=== PATIENT | female | born 1950 | race Caucasian/White ===

== ENCOUNTER 2022-03-14 08:30 | Emergency (ER) | payer MEDICARE ==
[~2022-03-14] VITALS: Ht 165.1 cm; Wt 79.4 kg
--- NOTE | 2022-03-14 08:30 | NUR ---
pt to bed 2. 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 alert oriented x4 c/o of chest pain 8/10 radiating to the jaw started this morning around 0730 accompined with nausea no vomiting. no sob. connected pt to cardica monitor bp elevated at 178/112 other vs stable. ekg being done at bed side. skin intact. nka. hx of HTN, GERD, ANXIETY, DEPRESSION. bed at lowest position saftey checks completed.
--- NOTE | 2022-03-14 08:30 | NUR ---
ER at bedside examining patient.
--- NOTE | 2022-03-14 08:32 | NUR ---
EKG performed at by Dr. Miles. Physician given copy of EKG for review.
[2022-03-14 08:34] VITALS: BP_SYST 179
--- NOTE | 2022-03-14 08:40 | NUR ---
Chest X-Ray being done at bedside.
--- NOTE | 2022-03-14 08:44 | NUR ---
biodiesel production technician at bedside drawing blood.
[2022-03-14] MEDS ORDERED: NITROGLYCERIN 0.4 MG TAB.SUBL SL ONE ×3 (08:45→11:15)
--- NOTE | 2022-03-14 09:07 | NUR ---
reassessed pain pt stating 8/[address] Miles made aware
[2022-03-14 09:12] LABS: BASOPHILS % (AUTO) 0.4 % (0.0-2.0); EOSINOPHILS # (AUTO) 0.1 K/uL (0.0-0.4); EOSINOPHILS % (AUTO) 2.1 % (0.0-4.0); HEMATOCRIT 44.1 % (36-48); HEMOGLOBIN 14.7 g/dL (12.0-16.0); LYMPHOCYTES # (AUTO) 1.6 K/uL (1.0-5.5); LYMPHOCYTES % (AUTO) 31.8 % (20.5-51.5); MEAN CORPUSCULAR HEMOGLOBIN 28 pg (27-31); MEAN CORPUSCULAR HGB CONC 33 % (32-36); MEAN CORPUSCULAR VOLUME 83 fL (79.0-98.0); MONOCYTES # (AUTO) 0.4 K/uL (0.0-1.0); MONOCYTES % (AUTO) 8.7 % (1.7-9.3); NEUTROPHILS # (AUTO) 2.9 K/uL (1.8-7.7); PLATELET COUNT (AUTO) 235 K/uL (130-430); RED BLOOD CELL COUNT(AUTO) 5.33 MIL/uL (4.2-6.2); RED CELL DISTRIBUTION WIDTH 14.2 % (9.0-15.0); WHITE BLOOD COUNT (AUTO) 5.1 K/uL (4.8-10.8)
[2022-03-14 09:25] LABS: ANION GAP 14 (5-15); CALCIUM 9.1 mg/dL (8.4-11.0); CHLORIDE 107 mmol/L (98-107); CREATININE 0.62 mg/dL (0.55-1.30); GLUCOSE 132 mg/dL (70-99); POTASSIUM 3.8 mmol/L (3.5-5.1); SODIUM SERUM 140 mmol/L (136-145); UREA NITROGEN, BLOOD 14 mg/dL (8-21)
[2022-03-14 09:34] LABS: ALANINE AMINOTRANSFERASE 37 U/L (12-78); ALBUMIN 3.6 g/dL (3.4-4.8); ASPARTATE AMINOTRANSFERASE 21 U/L (10-37); LIPASE 143 U/L (73-393); TOTAL BILIRUBIN 0.2 mg/dL (0.0-1.0)
--- NOTE | 2022-03-14 09:39 | NUR ---
Urine specimen collected and sent to lab
--- NOTE | 2022-03-14 09:40 | NUR ---
critical lab value called in from lab by chavez who stated pt troponin results are 873. Dr. Miles made aware.
[2022-03-14 09:41] LABS: INR 0.9 (0.8-1.2); PROTHROMBIN TIME 9.6 SECS (9.5-12.5)
--- NOTE | 2022-03-14 09:50 | NUR ---
Covid swab done and sent to lab.
[2022-03-14 10:00] LABS: BILIRUBIN,URINE NEGATIVE (NEGATIVE); BLOOD, URINE NEGATIVE (NEGATIVE); CLARITY/URINE CLEAR (CLEAR); COLOR,URINE YELLOW (YELLOW); GLUCOSE,URINE NEGATIVE (NEGATIVE); KETONES,URINE 3+ (NEGATIVE); LEUKOCYTE ESTERASE ,URINE NEGATIVE (NEGATIVE); NITRITE, URINE NEGATIVE (NEGATIVE); PROTEIN URINE TRACE (NEGATIVE); UROBILINOGEN,URINE 0.2 (0.2-1.0)
[2022-03-14] MEDS ORDERED: NITROGLYCERIN 250 ML IV ONE (10:00)
[2022-03-14] MEDS ORDERED: MORPHINE 4 MG INJ. 4 MG/ML VIAL IVP ONE (10:00)
[2022-03-14 10:29] LABS: BACTERIA,URINE RARE /HPF (None Seen); RBC,URINE NONE SEEN /HPF (0-3); WBC,URINE 0-3 /HPF (0-3)
--- NOTE | 2022-03-14 10:50 | NUR ---
EKG performed at by Urvashi Herrera lvn. Physician given copy of EKG for review.
--- NOTE | 2022-03-14 10:52 | NUR ---
pain reassessed 03/09 made aware
--- NOTE | 2022-03-14 10:59 | NUR ---
Critical Lab called called from lab [facility], troponin results 4,083. Dr. Miles made aware.
[2022-03-14] MEDS ORDERED: ENOXAPARIN SODIUM 80 MG/0.8 ML SYRINGE SUBCUT ONE (11:15)
[2022-03-14] MEDS ORDERED: NITROGLYCERIN 1 INCH (GM) OINT. TP ONE (11:15)
[2022-03-14] MEDS ORDERED: *LOVENOX 1MG/KG Q12H/PHARMACY XX ONE (11:15)
--- NOTE | 2022-03-14 11:25 | NUR ---
Personal belonging list completed and documented.
--- NOTE | 2022-03-14 11:58 | NUR ---
called maira gave report Hari PARRISH
--- NOTE | 2022-03-14 12:31 | NUR ---
Otilio lauradoris in EDM - 03/14/22 at 1235 by [id number] Pt's O2 saturation at 1% so placed pt on NC 4L and now O2 saturation is at 98%. Re-assessed chest pain and pt states her chest pain states it is no 01/09 non-radiating.
--- NOTE | 2022-03-14 12:35 | NUR ---
Pt's O2 saturation at 91% so placed pt on NC 4L and now O2 saturation is at 96%. Re-assessed chest pain and pt states her chest pain states it is no 2/10 non-radiating.
[2022-03-14 12:59] VITALS: BP_SYST 128
--- NOTE | 2022-03-14 13:00 | NUR ---
Patient to be transferred to [place]. Is being transferred due to higher level of care. Receiving facility has accepting physician and available space. ER physician has signed transfer form. Patient or responsible constitution party has agreed to transfer and signed form. Patient belongings inventoried and will be sent with patient. Copy of nursing notes, lab reports, EKG, Physicians Orders and X-rays to be sent with patient. Report called to Hari at receiving facility. [facility] has been called for transfer. ETA is .
== END 2022-03-14 13:00 | disposition short-term general hospital (02) ==
LOC: SED 08:30
DX: I21.4 Non-ST elevation (NSTEMI) myocardial infarction (principal); I10 Essential (primary) hypertension; Z20.822 Contact with and (suspected) exposure to COVID-19
CPT/HCPCS: 36415; 71045; 80053; 81000; 83690; 83880; 84484; 85025; 85610; 85730; 87426; 96372; 96374; 99285; J1650; J2270

== ENCOUNTER 2023-01-27 02:32 | Emergency (ER) | payer MEDICARE ==
[2023-01-27 02:40] VITALS: BP_SYST 152
--- NOTE | 2023-01-27 02:42 | NUR ---
Triage the patient and placed in ER bed 8 for evaluation. VSS, denied any acute respiratory distress at this time. Instructed to notify ED staff for any changes in condition or worsening of symptoms. Patient verbalized understanding.
--- NOTE | 2023-01-27 02:47 | NUR ---
Dr. Christensen at bedside examining the patient.
[2023-01-27] MEDS ORDERED: MECLIZINE HCL 25 MG TABLET (ANITVERT) PO ONE (03:00)
[2023-01-27] MEDS ORDERED: ONDANSETRON 4 MG ODT TAB PO ONE (03:00)
--- NOTE | 2023-01-27 03:00 | NUR ---
Chromosomal Disorders Counselor at bedside.
[2023-01-27 03:16] LABS: BASOPHILS % (AUTO) 0.3 % (0.0-2.0); EOSINOPHILS # (AUTO) 0.1 K/uL (0.0-0.4); EOSINOPHILS % (AUTO) 1.5 % (0.0-4.0); HEMATOCRIT 44.4 % (36-48); HEMOGLOBIN 14.9 g/dL (12.0-16.0); LYMPHOCYTES # (AUTO) 1.8 K/uL (1.0-5.5); LYMPHOCYTES % (AUTO) 20.6 % (20.5-51.5); MEAN CORPUSCULAR HEMOGLOBIN 28 pg (27-31); MEAN CORPUSCULAR HGB CONC 34 % (32-36); MEAN CORPUSCULAR VOLUME 83 fL (79.0-98.0); MONOCYTES # (AUTO) 0.6 K/uL (0.0-1.0); MONOCYTES % (AUTO) 6.8 % (1.7-9.3); NEUTROPHILS # (AUTO) 6.3 K/uL (1.8-7.7); NEUTROPHILS % (AUTO) 70.8 % (40.0-70.0); PLATELET COUNT (AUTO) 210 K/uL (130-430); RED BLOOD CELL COUNT(AUTO) 5.34 MIL/uL (4.2-6.2); RED CELL DISTRIBUTION WIDTH 14.4 % (9.0-15.0); WHITE BLOOD COUNT (AUTO) 8.8 K/uL (4.8-10.8)
[2023-01-27 03:29] LABS: ANION GAP 11 (5-15); CALCIUM 9.4 mg/dL (8.4-11.0); CHLORIDE 104 mmol/L (98-107); CREATININE 0.74 mg/dL (0.55-1.30); GLUCOSE 111 mg/dL (70-99); UREA NITROGEN, BLOOD 14 mg/dL (8-21)
[2023-01-27 03:36] LABS: ALANINE AMINOTRANSFERASE 43 U/L (12-78); ALBUMIN 3.6 g/dL (3.4-4.8); ASPARTATE AMINOTRANSFERASE 19 U/L (10-37); TOTAL BILIRUBIN 0.5 mg/dL (0.0-1.0)
[2023-01-27 04:28] LABS: BILIRUBIN,URINE NEGATIVE (NEGATIVE); BLOOD, URINE NEGATIVE (NEGATIVE); COLOR,URINE YELLOW (YELLOW); GLUCOSE,URINE NEGATIVE (NEGATIVE); KETONES,URINE 2+ (NEGATIVE); LEUKOCYTE ESTERASE ,URINE 1+ (NEGATIVE); NITRITE, URINE NEGATIVE (NEGATIVE); PH,URINE 5.5 (5.0-8.0); PROTEIN URINE NEGATIVE (NEGATIVE); UROBILINOGEN,URINE 0.2 (0.2-1.0)
[2023-01-27 04:35] LABS: CLARITY/URINE SLIGHTLY CLOUDY (CLEAR)
[2023-01-27 04:36] LABS: BACTERIA,URINE FEW /HPF (None Seen); RBC,URINE 0-3 /HPF (0-3); WBC,URINE 20-50 /HPF (0-3)
[2023-01-27] MEDS ORDERED: MECL-160 PO (04:44)
[2023-01-27] MEDS ORDERED: CEPH-548 PO (04:44)
[2023-01-27] MEDS ORDERED: ONDA-8 TL (04:44)
[2023-01-27 04:58] VITALS: BP_SYST 142
--- NOTE | 2023-01-27 04:58 | NUR ---
Patient given written and verbal discharge instructions and verbalizes understanding. ER MD discussed with patient the results and treatment provided. Patient in stable condition. ID arm band removed. Rx of MECLIZINE, ZOFRAN AND CEPHALEXIN given. Patient educated on pain management and to follow up with PMD. Pain Scale 0/10. Opportunity for questions provided and answered.
== END 2023-01-27 04:58 | disposition home or self-care (01) ==
LOC: SED 02:32
DX: N39.0 Urinary tract infection, site not specified (principal); R42 Dizziness and giddiness; R11.10 Vomiting, unspecified; E78.5 Hyperlipidemia, unspecified; I10 Essential (primary) hypertension; Z79.899 Other long term (current) drug therapy
CPT/HCPCS: 99284; 80053; 81000; 85025; 87086; 84484; 36415; 93005; J8597; Q0162